=== PATIENT | male | born 1960 | race Caucasian/White ===

== ENCOUNTER → 2017-06-24 | Outpatient (CLI) | payer BC ==
[~2017-06-24] MED LIST: CITA20TA9 PO; OXYC1TAB3 PO
--- NOTE | 2017-06-24 14:15 | DIAGNOSTIC IMAGING REPORT ---
ORBITS FOR MRI HISTORY: 56 years-old Male DISC HERNIATION,CERVICAL SPINE FRACTURE clearance for MRI. COMPARISON: CT head 06/14/2017 TECHNIQUE: 3 views of the orbits FINDINGS: There is no opaque foreign body identified. Orbits are unremarkable. Imaged paranasal sinuses appear symmetrically aerated. No acute facial bone fracture or dislocation identified. IMPRESSION: No opaque foreign body. The above report was generated using voice recognition software. It may contain grammatical, syntax or spelling errors. Electronically signed by: Artemio Brito M.D. 06/24/2017 2:13 PM Dictated Date/Time: 06/24/2017 2:01 PM
--- NOTE | 2017-06-24 16:51 | DIAGNOSTIC IMAGING REPORT ---
CERVICAL WITHOUT CONTRAST HISTORY: 56 years-old Male DISC HERNIATION,CERVICAL SPINE FRACTURE follow-up study in a patient with cervical spine fracture involving the C7 vertebral body and superior reticular facet at C7. COMPARISON: CT cervical spine 06/14/2017 TECHNIQUE: Multiplanar multisequence MRI of the cervical spine was obtained without contrast. FINDINGS: The large [id number] upstairs maid localizer images demonstrate no gross abnormality of the imaged head, neck or chest. Mild bone marrow edema is noted involving the anterosuperior endplates of C6-T3. There is moderate soft tissue edema noted adjacent to the posterior elements of the mid cervical spine, likely post traumatic. The previously described acute nondisplaced fracture involving the superior articular facet on the right at C7 is noted on image 2 of series 4 and also on image 2 of series 5 with moderate associated bone marrow and adjacent soft tissue edema. 20% anterior endplate compression deformity of C7 is again noted which appears acute in nature. 3 mm retropulsion involving the superior aspect of the posterior endplate C7 is noted as seen on image 8 of series 3 causing mild central canal and right lateral recess narrowing. The signal within the cord appears preserved. No additional acute fracture identified. Moderate edema is noted tracking along the anterior longitudinal ligament extending from C4-T1. C2-C3: Mild uncovertebral spurring and facet arthropathy without canal or foraminal narrowing. C3-C4: Broad-based posterior disc bulge, most pronounced centrally causes mild central canal narrowing. There is also mild facet arthropathy without significant foraminal narrowing. C4-C5: Broad-based posterior disc osteophyte complex and mild facet arthropathy causes mild right foraminal narrowing and flattening of the ventral thecal sac. No significant central canal or left foraminal narrowing. C5-C6: Broad-based posterior disc bulge with endplate spurring is noted in conjunction with mild to moderate facet arthropathy. There is flattening of the ventral thecal sac with moderate left foraminal narrowing. No significant central canal or right foraminal narrowing. C6-C7: Retrolisthesis as above with mild right lateral recess, mild right foraminal and mild central canal narrowing. Left foramen is generally patent. Moderate facet arthrosis is also noted with posterior spondylitic spurring and broad-based posterior disc bulge. C7-T1: Mild facet arthrosis without central canal or foraminal narrowing. IMPRESSION: 1. Acute 20% anterior endplate compression deformity of C7 redemonstrated with moderate associated bone marrow edema. 3 mm retropulsion involving the superior posterior endplate of C7 results in mild central canal, mild right lateral recess and mild right foraminal narrowing. No cord edema. 2. Acute nondisplaced fracture is also again seen involving the superior articular facet on the right at C7 with moderate bone marrow and adjacent soft tissue edema. 3. Mild bone marrow edema involves the anterior superior endplates of the C6-T3 vertebral bodies suggesting posttraumatic bone marrow contusions without definite additional fracture identified. 4. Moderate soft tissue edema tracking along the anterior longitudinal ligament extends from C4-T1 is noted in addition to moderate soft tissue edema adjacent to the posterior elements of the mid cervical spine as above, likely reactive. 5. Discogenic degenerative changes and facet arthropathy as above. The above report was generated using voice recognition software. It may contain grammatical, syntax or spelling errors. Electronically signed by: Artemio Brito M.D. 06/24/2017 4:50 PM Dictated Date/Time: 06/24/2017 2:49 PM
== END | disposition home or self-care (01) ==
LOC: C.RAD 13:00
PROVIDERS: ATTEND Orthopaedic Surgery Orthopaedic Surgery of the Spine
DX: M50.20 Other cervical disc displacement, unspecified cervical region (principal); S12.9XXA Fracture of neck, unspecified, initial encounter; X58.XXXA Exposure to other specified factors, initial encounter

== ENCOUNTER 2017-07-26 07:59 | Observation (INO) | payer OTHER, BC ==
[2017-07-09 10:27] VITALS: BMI 31.0
--- NOTE | 2017-07-09 11:14 | PAT Medication Instructions ---
Service Date Jul 09, 2017. Current Home Medication List Escitalopram Oxalate (Lexapro), 20 MG PO QAM Ibuprofen Tab (Motrin), 2 TAB PO Q8H PRN for Pain Multivitamin (Multivitamin), 1 TAB PO QAM [Iron], 65 MG PO QAM Medication Instructions For Your Scheduled Surgery - Check with surgeon for instructions: Ibuprofen Tab (Motrin), 2 TAB PO Q8H PRN for Pain - Hold the following medications the morning of surgery: Multivitamin (Multivitamin), 1 TAB PO QAM [Iron], 65 MG PO QAM - Take the following medications the morning of surgery with a sip of water: Escitalopram Oxalate (Lexapro), 20 MG PO QAM If you have any questions please call us at [phone] or [phone] or [phone]
[2017-07-09 11:42] LABS: BASO % 0.3 %; BASO ABS # 0.02 K/uL (0-0.2); EOS % 2.2 %; EOS ABS # 0.16 K/uL (0-0.5); HEMATOCRIT 42.8 % (42-52); HEMOGLOBIN 14.5 g/dL (14.0-18.0); IG# 0.02 K/uL (0.00-0.02); LYMPH % 21.6 %; LYMPH ABS # 1.55 K/uL (1.2-3.4); MEAN CELL VOLUME 87.9 fL (80-100); MEAN CORPUSCULAR HEMOGLOBIN 29.8 pg (25-34); MEAN CORPUSCULAR HGB CONC 33.9 g/dl (32-36); MEAN PLATELET VOLUME 9.9 fL (7.4-10.4); MONO % 8.8 %; MONO ABS # 0.63 K/uL (0.11-0.59); NEUT % 66.8 %; NEUT ABS # 4.81 K/uL (1.4-6.5); PLATELET COUNT 281 K/uL (130-400); RED CELL DISTRIBUTION WIDTH SD 41.7 fL (36.4-46.3); WHITE BLOOD COUNT 7.19 K/uL (4.8-10.8)
[2017-07-09 11:53] LABS: PTT PATIENT 29.7 SECONDS (21.0-31.0)
--- NOTE | 2017-07-09 12:17 | DIAGNOSTIC IMAGING REPORT ---
CHEST PREADMISSION(PA/LAT) CLINICAL HISTORY: PAT preoperative evaluation COMPARISON STUDY: 06/14/2017 FINDINGS: Mild stable cardiomegaly. Improved pulmonary vasculature with no current evidence for congestive failure. Lungs are clear. Diaphragms smooth. IMPRESSION: Improved exam. Mild stable cardiomegaly. No acute process. The above report was generated using voice recognition software. It may contain grammatical, syntax or spelling errors. Electronically signed by: William Hand M.D. 07/09/2017 12:16 PM Dictated Date/Time: 07/09/2017 12:15 PM
[2017-07-09 13:57] LABS: CALCIUM 9.2 mg/dl (8.5-10.1); CREATININE 0.92 mg/dl (0.60-1.40); POTASSIUM 4.4 mmol/L (3.5-5.1)
--- NOTE | 2017-07-25 10:57 | HISTORY & PHYSICAL EXAMINATION ---
DATE OF ADMISSION: 07/26/2017 He is being preoped for surgery, anterior cervical discectomy and fusion of C6-C7 cervical spine at [facility]. CHIEF COMPLAINT: Neck pain, arm pain and trapezius pain. HISTORY OF PRESENT ILLNESS: Mr. Zelaya is a delightful gentleman and he is 56. He suffered a ligamentous injury to his cervical spine with forward flexion of his C6-C7 interspace with tearing of posterior ligamentous structures. He is being scheduled for cervical spine reconstruction. PAST MEDICAL HISTORY: Negative for hypertension, COPD, carcinoma, kidney disease, liver disease. No anesthesia complications. He does have acid reflux, did have heart surgery as a baby. PAST SURGICAL HISTORY: Heart surgery in 1962, hernia surgery in 2008. ALLERGIES: PENICILLIN. MEDICATIONS: Include Motrin and Lexapro. REVIEW OF SYSTEMS: Denies any blurred vision, double vision, tinnitus, vertigo, headaches. Negative for chest pain, palpitations. No shortness of breath, asthma, wheezing. No nausea, vomiting, urgency, frequency, dysuria. The neck pain is musculoskeletal in nature, upper extremity and trapezius pain. PHYSICAL EXAMINATION: GENERAL: He is 6 feet, 220 pounds. Alert, oriented. VITAL SIGNS: Blood pressure 130/80, pulse 80. Appropriately dressed. Mentation normal. HEENT: Pupils react to light and accommodation. Ear, nose and throat clear. CARDIAC: Normal S1, S2, no S3. LUNGS: Clear to auscultation with wheezing and rhonchi. ABDOMEN: Soft, nontender, bowel sounds present in all quadrants. EXTREMITIES: Intact, 5/5 strength throughout. IMAGING STUDIES: Images demonstrated ligamentous injury C6-C7 cervical spine. DISPOSITION: Includes an anterior cervical discectomy of cervical spine C6-C7 with iliac crest bone graft.
[~2017-07-26] VITALS: Ht 182.9 cm; Wt 103.5 kg
[2017-07-26] VITALS (10 sets, daily range): BP systolic 138–174; BP diastolic 79–94; PULSE 72–88; TEMP 36.4–36.7; O2SAT 94–97; Ht 182.9 cm; Wt 103.5 kg
[~2017-07-26 07:59] MED LIST changes: -CITA20TA9 PO; +CLINDAMYCIN 600 MG/54 ML D5W 54 ML IV SCH; +ESCI1TAB10 PO; +IBUP-1449 PO; +IRON PO; +LACTATED RINGER'S 1000ML 1,000 ML IV SCH; +MULT-506 PO; +NSS 1000ML IV SCH; -OXYC1TAB3 PO
[2017-07-26] MEDS ORDERED: THROMBIN FOR SOLN 20000 UNIT KIT ONE (10:17)
[2017-07-26] MEDS ORDERED: GELATIN SPONGE SZ 100 ONE (10:17)
[2017-07-26] MEDS ORDERED: BUPIVACAINE/EPINEPHRINE 0.5% MPF 1:200,000 30 ML VIAL ONE (10:18)
[2017-07-26] MEDS ORDERED: BACITRACIN 50000 UNIT VIAL ONE (10:18)
[2017-07-26] MEDS ORDERED: PROPOFOL IV EMULSION 10 MG/ML 100 ML VIAL IV ONE (10:27)
[2017-07-26] MEDS ORDERED: REMIFENTANIL 1 MG VIAL ONE (10:27)
--- NOTE | 2017-07-26 10:31 | History & Physical Bridge Note ---
H&P Re-Evaluation Bridge Note: I have examined the patient, reviewed the History & Physical and in the interval since the performance of the History & Physical I have noted the following changes of clinical significance: No changes noted
[2017-07-26] MEDS ORDERED: FENTANYL CITRATE INJ 50 MCG/1 ML 2 ML VIAL ONE ×3 (10:42→12:00)
[2017-07-26] MEDS ORDERED: MIDAZOLAM HCL 1 MG/ML 2ML VIAL ONE ×2 (10:42→11:12)
[2017-07-26] MEDS ORDERED: PROPOFOL IV EMULSION 10 MG/ML 20 ML VIAL IV ONE ×2 (11:52→12:03)
[2017-07-26] MEDS ORDERED: LIDOCAINE HCL 2% 2 ML VIAL (20MG/ML) ONE (11:52)
[2017-07-26] MEDS ORDERED: SUCCINYLCHOLINE CHLORIDE 20 MG/ML 10 ML VIAL IV ONE (11:52)
[2017-07-26] MEDS ORDERED: EpHEDrine SULFATE 50MG/5ML SYR ONE (12:10)
--- NOTE | 2017-07-26 12:38 | DIAGNOSTIC IMAGING REPORT ---
Cervical SPINE, INTRAOPERATIVE FLUOROSCOPY HISTORY: ACDF C6-C7. FLUOROSCOPY TIME: 8 seconds. FINDINGS: Intraoperative fluoroscopy was provided for the cervical. 3 fluoroscopic spot images were obtained. Postoperative changes consistent with anterior cervical discectomy and fusion at C6-C7. The hardware appears intact. IMPRESSION: Fluoroscopy provided for a C6-C7 ACDF. Electronically signed by: Charan Thomas M.D. 07/26/2017 12:37 PM Dictated Date/Time: 07/26/2017 12:36 PM
--- NOTE | 2017-07-26 12:55 | [facility] Post Operative Brief Note ---
Immediate Operative Summary Operative Date Jul 26, 2017. Pre-Operative Diagnosis Spondylolisthesis C6-C7 Post-Operative Diagnosis Spondylolisthesis C6-C7 Procedure(s) Performed C6-C7 Anterior Cervical Discectomy and Fusion with Iliac Crest Bone Graft, and with Spinal cord monitoring Surgeon Dr. Hurtado [place] Cutting Machine Operator Surgeon(s) Dusty Jones PA-C Estimated Blood Loss 15 ml Findings instability c6-7 Specimens none per surgeon Complication(s) None Disposition Recovery Room / PACU
[2017-07-26] MEDS ORDERED: ONDANSETRON INJ 2 MG/ML 2 ML VIAL IV PRN ×2 (13:00→13:15)
[2017-07-26] MEDS ORDERED: RACEPINEPHRINE 2.25% NEBU SOLN 0.5 ML VIAL INH PRN (13:00)
[2017-07-26] MEDS ORDERED: NALOXONE HCL 0.4 MG/1 ML VIAL/CARP IV PRN ×2 (13:00→13:15)
[2017-07-26] MEDS ORDERED: HYDROmorphone INJ 0.5 MG/0.5 ML SYR IV PRN (13:00)
[2017-07-26] MEDS ORDERED: DEXAMETHASONE INJ 8 MG in SYRINGE 0 ML IV PRN (13:00)
[2017-07-26] MEDS ORDERED: LORAZEPAM INJ 0.5 MG in SYRINGE 0.75 ML IV PRN (13:00)
[2017-07-26] MEDS ORDERED: OXYCODONE/ACETAMINOPHEN 5-325 TAB PO PRN (13:00)
[2017-07-26] MEDS ORDERED: MAGNESIUM HYDROXIDE SUSP 30 ML UDC PO PRN (13:00)
[2017-07-26] MEDS ORDERED: HYDROmorphone INJ 1 MG/ML SYR IV PRN (13:15)
[2017-07-26] MEDS ORDERED: FLUMAZENIL 0.1 MG/1 ML 10 ML VIAL IV PRN (13:15)
[2017-07-26] MEDS ORDERED: EpHEDrine SULFATE INJ 50 MG/ML AMP IV PRN (13:15)
[2017-07-26] MEDS ORDERED: PROMETHAZINE HCL INJ 12.5 MG in SODIUM CHLORIDE 0.9% 50ML 50 ML IV PRN (13:15)
[2017-07-26] MEDS ORDERED: LABETALOL HCL IV 5 MG/ML 20ML IV PRN (13:15)
[2017-07-26] MEDS ORDERED: ATROPINE SULFATE 0.1 MG/ML 5ML SYR IV PRN (13:15)
[2017-07-26] MEDS ORDERED: HYDROmorphone INJ 1 MG/ML SYR ONE (13:20)
[2017-07-26] MEDS ORDERED: IV FLUIDS COMPLETED PRN (13:45)
[2017-07-26] MEDS ORDERED: LABETALOL HCL IV 5 MG/ML 20ML IV ONE (13:52)
--- NOTE | 2017-07-26 13:57 | OPERATIVE REPORT ---
DATE OF OPERATION: 07/26/2017 PREOPERATIVE DIAGNOSIS: Spondylolisthesis of cervical spine, C6-C7 with disk herniation. POSTOPERATIVE DIAGNOSIS: Same. PROCEDURE: Anterior cervical discectomy and fusion, C6-C7 cervical spine and left iliac crest bone graft. IMPLANTS USED: [employer]. BLOOD LOSS: Less than 20. COMPLICATIONS: Zero. COUNTS: Sponge and needle count correct. DESCRIPTION OF PROCEDURE: The patient was taken to the operating room and kept supine, prepped and draped sterile. We made skin incision, fascial incision and came down on the anterior aspect of the vertebral body, particularly C6. We marked the C5-C6 because of its size over the level we could see, we moved down 1 level to the C6-C7 interval of the surgery. We did a complete discectomy; took out all osteophytes, left and right, reduced the spondylolisthesis as well. We spinal cord monitoring throughout the entire procedure. I then went to the left iliac crest. Skin incision, fascial incision, harvested a piece of autograft measuring approximately 6-7 mm in height and approximately 15 mm in depth and approximately 14 mm across. This was placed into the discectomy site at C6-C7. Anterior plate by the Qio placed over the construct. The screws fastened, irrigated and closed. Radiographs appropriate. We closed over a [place] drain. Sterile dressings applied. The iliac crest closed with 1 Vicryl, 2-0 and 3-0 nylon, also sterile dressings applied. The patient extubated to PACU stable. No apparent complications. I attest to the content of the Intraoperative Record and any orders documented therein. Any exception s are noted below.
--- NOTE | 2017-07-26 14:15 | Anesthesiology Progress Note ---
Anesthesia Post Op Note Date & Time Jul 26, 2017 at 14:14 Vital Signs Pain Intensity: 3 Vital Signs Past 12 Hours Date Time Temp Pulse Resp B/P (MAP) Pulse Ox O2 Delivery O2 Flow Rate FiO2 07/26/17 14:03 36.5 85 20 154/90 (110) 97 Nasal Cannula 3 07/26/17 13:47 90 20 07/26/17 13:47 91 20 97 07/26/17 13:46 167/105 07/26/17 13:42 90 19 07/26/17 13:42 90 19 97 07/26/17 13:41 171/108 07/26/17 13:37 91 18 07/26/17 13:37 88 18 99 07/26/17 13:36 96 21 172/100 98 07/26/17 13:36 96 21 07/26/17 13:31 112 20 07/26/17 13:31 93 20 176/104 99 07/26/17 13:26 96 22 07/26/17 13:26 95 22 176/94 98 07/26/17 13:23 186/106 07/26/17 13:21 95 15 171/103 99 07/26/17 13:21 95 15 07/26/17 13:16 96 12 07/26/17 13:16 96 12 166/102 100 07/26/17 13:12 164/98 07/26/17 13:11 101 18 192/104 100 07/26/17 13:11 101 18 07/26/17 13:08 168/105 07/26/17 13:07 198/98 07/26/17 13:06 100 20 07/26/17 13:06 36.4 101 20 198/98 (132) 98 Oxymask 10 07/26/17 13:06 100 20 99 07/26/17 08:20 36.4 72 20 146/86 (106) 95 Room Air Notes Mental Status: alert / awake / arousable, participated in evaluation Pt Amnestic to Procedure: Yes Nausea / Vomiting: adequately controlled Pain: adequately controlled Airway Patency, RR, SpO2: stable & adequate BP & HR: stable & adequate Hydration State: stable & adequate Anesthetic Complications: no major complications apparent
[2017-07-26] MEDS ORDERED: ACETAMINOPHEN IV 100 ML IV PRN (15:30)
[2017-07-26] MEDS: SODIUM CHLORIDE 0.9% 1000ML 1,000 ML IV SCH (18:39)
[2017-07-26] MEDS: DOCUSATE SODIUM 100 MG CAP PO SCH (21:25)
[2017-07-26] MEDS: CLINDAMYCIN IV 600 MG in DEXTROSE 5% 50ML 50 ML IV SCH (22:02)
[2017-07-27] VITALS (9 sets, daily range): BP systolic 128–150; BP diastolic 71–79; PULSE 72–90; TEMP 36.5–36.7; O2SAT 94–99
[2017-07-27] MEDS: IBUPROFEN 800 MG TAB PO PRN ×2 (00:18→09:30)
[2017-07-27] MEDS: CLINDAMYCIN IV 600 MG in DEXTROSE 5% 50ML 50 ML IV SCH (06:32)
[2017-07-27] MEDS: SODIUM CHLORIDE 0.9% 1000ML 1,000 ML IV SCH (06:32)
--- NOTE | 2017-07-27 07:30 | Discharge Instructions ---
Discharge Instructions Date of Service Jul 27, 2017. Admission Reason for Admission: Spondylolisthesis Discharge Discharge Diagnosis / Problem: same Discharge Goals Goal(s): Improve function Activity Recommendations Activity Limitations: as noted below . Instructions / Follow-Up Instructions / Follow-Up MEDICATIONS: Please take your prescriptions as instructed at your pre-op appointment. SPECIAL CARE: The following information is intended to answer some of the common questions and concerns regarding your surgery. Each patient is an individual and receives individual counselling throughout the course of treatment, from diagnosis to surgery all the way through recovery. What follows is not an exhaustive list, but should be a useful guide to some of the common questions and concerns patients have regarding their surgeries. These are not provided to keep you from calling us; rather, they give you something accurate and concrete to reference as you recover from your procedure. If you need us, we are available to you. As always, if you are not sure about something, call us at [phone]. MEDICAL EMERGENCIES: For these conditions, call 911 or go to your local hospital-based Emergency Department - not [facility] or equivalent. * Paralysis * Severe chest pain or difficulty breathing * Swelling or redness of either leg Spine procedures can be rather complex and though complications are rare, they do occur. In such cases, effective advice regarding emergency situations cannot always be addressed over the telephone. You may be referred to the emergency department for more effective management of your problem. Activity Limitations: It is important to give your body time to heal, so please limit your activities : * In general, don't do anything that moves your spine too much. You should avoid contact sports, twisting or heavy lifting while you recover. * 5-10 pounds is all you should attempt to lift. * You should not plan on driving for approximately 3 weeks and you should avoid traveling more than 30-45 minutes at a time. Longer trips should be broken down with walking breaks spaced appropriately. * Physical therapy is not usually required. * Walking and good posture practices will help you recover and regain your function. * Avoid straining or sudden changes in position. * In general, the goal is to take it easy and recover. Don't cause any new problems. Just relax. Showers: * Do not take a bath, use a Jacuzzi or hot tub or otherwise submerge your incision. * It is usually safe to take a shower 4-5 days after your surgery. * Your incision does not require any special creams or ointments. * Simply clean it with soap and water, dry and re-dress with a clean bandage afterwards. Incision: * Keep incision clean, dry and protected until your first follow-up appointment. * Some amount of drainage and redness is normal. Any drainage should be fairly clear and not have a foul odor. * If you feel anything is wrong or you have excessive drainage, please call us. * Your stitches and dileep will be removed 10-14 days after your surgery. At the time of your first post-op visit. * Neck surgeries are typically closed with a suture underneath the skin. The steri-strips over the incision should be maintained until we see you in the office. Bracing: * You may be provided with a back or neck brace to encourage good posture and prevent injury. It will remind you not to do too much as you heal and will alert others to the fact that you have had a surgery. * Back braces may be removed for showers and when you are resting at home. They must be worn when you are walking around for any period of time or for travel. * For neck surgery, you will likely be provided with two cervical collars. The soft collar ([place] or foam rubber) is worn most commonly throughout the day and while sleeping. The plastic collar (provided at the hospital) is for showering/bathing. * Except while eating, collars should remain in place. More specifically, bracing is provided for a purpose and should be worn. * Please obtain your brace or collars prior to your operation and bring them to the hospital with you on the day of surgery. * You should also bring your collars to your post-op appointment with Dr. Hurtado. You should always take good care of your body and practice healthy habits, especially following surgery. You should: * Follow your doctor's treatment plan * Sit and stand properly with good posture (ears over shoulders, shoulders over hips) Don't slouch * Learn to lift correctly * Exercise regularly (low-impact aerobic exercise is especially good, but check with your doctor first) * Generally, be up and walking for 5-10 minutes at a time at least 3-4 times per day from the day you get home * Increasing walking to tolerance until you can walk for 20-30 minutes at a time * Attain and maintain a healthy body weight * Eat healthy foods ( a well-balanced, low-fat diet rich in fruits and vegetables) and get enough calcium * Avoid excessive use of alcohol When to call our office - If you notice any of the following: * Increased pain not relieve by pain medicine * Fevers greater then 100 degrees F, chills or flu symptoms * Increased redness around incision * Drainage from the incision that is not clear * Any foul smelling drainage * Swelling or fluid collection beneath the skin Miscellaneous: * In the hospital, you may be given a walker or cane for support while walking. These are temporary needs and are intended to prevent injuries due to falls. You may discontinue them when you feel strong and steady enough on your feet. * Sleep in a comfortable position. We find that many patients find a lounge chair or recliner with several pillows to be beneficial in the early post-operative period. * The support stockings should be used for 7-10 days and may be discontinued when you are back to walking more and conducting usual household activities. No problem is insignificant. We are here to help you and get you well. Contact us at [phone]. Definitions: Foraminotomy: If part of the disc or a bone spur (osteophyte) is pressing on a nerve as it leaves the vertebra (through an exit called the foramen), a foraminotomy may be done. Otomy means "to make an opening." A foraminotomy is making the opening of the foramen larger, so the nerve can exit without being compressed. Laminotomy: Similar to the foraminotomy, a laminotomy makes a larger opening, this time in your bony plate protecting your spinal canal and spinal cord (the lamina). The lamina may be pressing on your nerve, so the surgeon may make more room for the nerves using a laminotomy. Laminectomy: Sometimes, a laminotomy is not sufficient. The surgeon may need to remove all or part of the lamina. This procedure is called a laminectomy. This can often be done at many levels without any harmful effects. Current Hospital Diet Patient's current hospital diet: Clear Liquid Diet; ADVANCE TOLERATED Discharge Diet Recommended Diet: Regular Diet Procedures Procedures Performed: C6-C7 Anterior Cervical Discectomy and Fusion with Iliac Crest Bone Graft, and with Spinal cord monitoring Pending Studies Studies pending at discharge: no Medical Emergencies . Who to Call and When: Medical Emergencies: If at any time you feel your situation is an emergency, please call 911 immediately. . Non-Emergent Contact Non-Emergency issues call your: Primary Care Provider . "Provider Documentation" section prepared by Misha Hurtado. . VTE Core Measure Inpt VTE Proph given/why not?: Treatment not indicated
--- NOTE | 2017-07-27 07:41 | Anesthesiology Progress Note ---
Anesthesia Post Op Note Date & Time Jul 27, 2017 at 07:40 Vital Signs Pain Intensity: 0.0 Vital Signs Past 12 Hours Date Time Temp Pulse Resp B/P (MAP) Pulse Ox O2 Delivery O2 Flow Rate FiO2 07/27/17 07:38 72 16 99 Nasal Cannula 3.0 07/27/17 06:30 36.5 77 16 128/71 94 Room Air 07/27/17 04:31 36.5 90 18 139/71 97 Nasal Cannula 2.0 Humidified Oxygen 07/27/17 04:05 75 16 97 Nasal Cannula 3.0 07/27/17 02:34 36.7 89 16 133/79 97 Nasal Cannula 2.0 Humidified Oxygen 07/27/17 00:27 36.5 77 18 150/77 95 Nasal Cannula 2.0 Humidified Oxygen 07/27/17 00:02 81 16 97 Nasal Cannula 3.0 07/26/17 23:05 Nasal Cannula 2.0 Humidified Oxygen 07/26/17 23:05 Nasal Cannula 2.0 Humidified Oxygen 07/26/17 22:50 36.7 81 16 155/79 94 Nasal Cannula 2.0 07/26/17 20:14 80 16 97 Nasal Cannula 3.0 Notes Mental Status: alert / awake / arousable, participated in evaluation Pt Amnestic to Procedure: Yes Nausea / Vomiting: adequately controlled Pain: adequately controlled Airway Patency, RR, SpO2: stable & adequate BP & HR: stable & adequate Hydration State: stable & adequate Anesthetic Complications: no major complications apparent
[2017-07-27] MEDS: DOCUSATE SODIUM 100 MG CAP PO SCH (08:38)
[2017-07-27] MEDS ORDERED: FERROUS FUMARATE CONTR REL CAP 65 MG CAPCR PO SCH (09:00)
[2017-07-27] MEDS ORDERED: MULTIVITAMIN TAB PO SCH (09:00)
[2017-07-27] MEDS ORDERED: ESCITALOPRAM OXALATE 20 MG TAB PO SCH (09:00)
--- NOTE | 2017-07-27 17:26 | DISCHARGE SUMMARY ---
SUBJECTIVE: Improved, stable, minimal complaints of pain. Alert, oriented. No chest pain, calf pain, or shortness of breath. OBJECTIVE: Vital signs stable. Wounds were protected. Answers questions appropriately. ASSESSMENT: Single level anterior cervical discectomy and fusion cervical spine, improved, stable. DISPOSITION: We will discharge him home later on this morning. He has medication at home for pain. Instructions, precautions given at the office and here at the hospital. I conversed with him directly. Going to try to wear the collar off and on for the next 2 to 3 weeks.
[2017-07-28] MEDS ORDERED: BISACODYL 10 MG SUPP PR PRN (06:00)
[2017-07-28] MEDS ORDERED: BISACODYL 5 MG TABEC PO PRN (06:00)
== END 2017-07-27 10:58 | disposition home or self-care (01) ==
LOC: C.ACU 07:59 → C.3E 09:35 → ENRESERV 14:02
PROVIDERS: ADMIT Orthopaedic Surgery Orthopaedic Surgery of the Spine; ATTEND Orthopaedic Surgery Orthopaedic Surgery of the Spine
DX: M43.12 Spondylolisthesis, cervical region (principal); M50.223 Other cervical disc displacement at C6-C7 level; K21.9 Gastro-esophageal reflux disease without esophagitis; Z88.0 Allergy status to penicillin; E66.9 Obesity, unspecified